=== PATIENT | male | born 1970 | race African-American/Black ===

== ENCOUNTER 2017-08-21 11:32 | Emergency (ER) | payer OTHER ==
[2017-08-21 11:37] VITALS: BMI 29.1
[2017-08-21] MEDS ORDERED: SODIUM CHLORIDE 1,000 ML IV STA (12:13)
--- NOTE | 2017-08-21 12:15 | PDOC ---
History of Present Illness - General Chief Complaint: Weakness Stated Complaint: WEAKNESS Time Seen by Provider: 08/21/17 11:43 History Source: Patient Exam Limitations: No Limitations Past History - Past Medical History Allergies/Adverse Reactions: Allergies Allergy/AdvReac Type Severity Reaction Status Date / Time omeprazole AdvReac Verified 08/21/17 11:37 Home Medications: Ambulatory Orders Ranitidine HCl [Zantac] 150 mg PO BID 08/21/17 Disorders: Yes (POOR KIDNEY FUNCTIONS) - Suicide/Smoking/Psychosocial Hx Smoking History: Never smoked Hx Alcohol Use: No Drug/Substance Use Hx: No *Physical Exam - Vital Signs Last Vital Signs Temp Pulse Resp BP Pulse Ox 98.4 F 79 20 122/77 100 08/21/17 11:34 08/21/17 11:34 08/21/17 11:34 08/21/17 11:34 08/21/17 12:02 ED Treatment Course - LABORATORY CBC & Chemistry Diagram: 08/21/17 12:35 08/21/17 12:35 *DC/Admit/Observation/Transfer Diagnosis at time of Disposition: Weakness Abdominal pain Qualifiers: Abdominal location: epigastric Qualified Code(s): R10.13 - Epigastric pain; R10.13 - Epigastric pain - Discharge Dispostion Disposition: HOME Condition at time of disposition: Improved Admit: No - Referrals Referrals: Vasile Atkinson MD [Primary Care Provider] - - Patient Instructions Printed Discharge Instructions: DI for Abdominal Pain-Adult Additional Instructions: You felt weak today and had abdominal pain. Your lab testing showed elevated creatinine. Follow up with your development mechanic, primary care doctor, and carrier operator. If you have the stomach pain you may take ibuprofen 400 mg 3 times a day if needed. He may also take Maalox and Zofran. Follow the dosing instructions on the bottle. Eat a bland diet for the next couple days. Avoid dairy, spicy foods, fatty foods. You may have bananas, applesauce, plain rice, toast. Avoid rigorous work outs for the next few days. Return to the emergency department if you have worsening pain, weakness, nausea , vomiting, or any changes in your symptoms. - Post Discharge Activity Forms/Work/School Notes: Back to Work
[2017-08-21 12:51] LABS: BASOPHIL 0.7 % (0-2.0); EOSINOPHIL 0.6 % (0-4.5); MCH 26.6 pg (25.7-33.7); MCHC 33.5 g/dl (32.0-35.9); MEAN CELL VOLUME 79.5 fl (80-96); MEAN PLT VOLUME 8.4 fl (7.5-11.1); NEUTROPHILS 58.7 % (42.8-82.8); PLATELET COUNT 193 K/MM3 (134-434); RDW 14.2 % (11.9-15.9); WHITE BLOOD COUNT 4.7 K/mm3 (4.0-10.0)
[2017-08-21 12:59] LABS: URINE APPEARANCE CLEAR; URINE BILIRUBIN NEGATIVE (NEGATIVE); URINE BLOOD NEGATIVE (NEGATIVE); URINE COLOR COLORLESS; URINE GLUCOSE (UA) NEGATIVE (NEGATIVE); URINE KETONE NEGATIVE (NEGATIVE); URINE LEUK ESTERASE NEGATIVE (NEGATIVE); URINE NITRITE NEGATIVE (NEGATIVE); URINE PROTEIN NEGATIVE (NEGATIVE); URINE UROBILINOGEN NEGATIVE mg/dL (0.2-1.0)
[2017-08-21 13:05] LABS: ALBUMIN 4.2 g/dl (3.4-5.0); ANION GAP 4 (8-16); CALCIUM 9.3 mg/dL (8.5-10.1); CO2 31 mmol/L (21-32); GLUCOSE,RANDOM 100 mg/dL (74-106)
[2017-08-21 13:10] LABS: ALK PHOS 64 U/L (45-117); BILIRUBIN,TOTAL 0.6 mg/dL (0.2-1.0); CREATININE 1.4 mg/dL (0.7-1.3); INR 1.1 (0.82-1.09); PROTHROMBIN TIME (PATIENT) 12.1 SEC (9.98-11.88); SGOT/AST 51 U/L (15-37); SGPT/ALT 55 U/L (12-78); TOT PROT 7.5 g/dl (6.4-8.2)
[2017-08-21 13:16] LABS: TROPONIN I < 0.02 ng/ml (0.00-0.05)
[2017-08-21 13:19] LABS: CPK 1845 IU/L (39-308)
[2017-08-21 15:18] VITALS: BP 144/91; PULSE 73; TEMP 98.5
[2017-08-21] MEDS ORDERED: ONDANSETRON 4 MG/2 ML VIAL IVPUSH ONE (16:11)
[2017-08-21] MEDS ORDERED: KETOROLAC TROMETHAMINE 15 MG/ML VIAL IVPUSH ONE (16:14)
[2017-08-21] MEDS ORDERED: MAG HYDROX/AL HYDROX/SIMETH 355 ML ORAL.SUSP PO ONE (16:15)
[2017-08-21] MEDS ORDERED: MAG HYDROX/AL HYDROX/SIMETH 30 ML UNIT-DOSE CUP ONE (16:18)
--- NOTE | 2017-08-21 17:13 | PDOC ---
*Physical Exam - Vital Signs Last Vital Signs Temp Pulse Resp BP Pulse Ox 98.5 F 73 17 144/91 100 08/21/17 15:18 08/21/17 15:18 08/21/17 15:18 08/21/17 15:18 08/21/17 15:18 ED Treatment Course - LABORATORY CBC & Chemistry Diagram: 08/21/17 12:35 08/21/17 12:35 - ADDITIONAL ORDERS Additional order review: Laboratory Results 08/21/17 08/21/17 08/21/17 12:35 12:35 12:35 PT with INR 12.10 H INR 1.10 Sodium 138 Potassium 4.1 Chloride 103 Carbon Dioxide 31 Anion Gap 4 L BUN 8 D Creatinine 1.4 H Creat Clearance w eGFR 54.56 Random Glucose 100 Calcium 9.3 Total Bilirubin 0.6 D AST 51 H D ALT 55 D Alkaline Phosphatase 64 Creatine Kinase Creatine Kinase Index CK-MB (CK-2) Troponin I B-Natriuretic Peptide 43.71 Total Protein 7.5 Albumin 4.2 Lipase Urine Color Colorless Urine Appearance Clear Urine pH 7.0 Ur Specific [place] <= 1.005 Urine Protein Negative Urine Glucose (UA) Negative Urine Ketones Negative Urine Blood Negative Urine Nitrite Negative Urine Bilirubin Negative Urine Urobilinogen Negative 08/21/17 12:14 PT with INR INR Sodium Potassium Chloride Carbon Dioxide Anion Gap BUN Creatinine Creat Clearance w eGFR Random Glucose Calcium Total Bilirubin AST ALT Alkaline Phosphatase Creatine Kinase 1845 H Creatine Kinase Index 0.5 CK-MB (CK-2) 10.193 H Troponin I < 0.02 B-Natriuretic Peptide Total Protein Albumin Lipase 291 Urine Color Urine Appearance Urine pH Ur Specific [place] Urine Protein Urine Glucose (UA) Urine Ketones Urine Blood Urine Nitrite Urine Bilirubin Urine Urobilinogen 08/21/17 12:35 RBC 5.06 MCV 79.5 L MCHC 33.5 RDW 14.2 MPV 8.4 Neutrophils % 58.7 Lymphocytes % 30.4 Monocytes % 9.6 Eosinophils % 0.6 Basophils % 0.7 - Medications Given in the ED: ED Medications Discontinued Medications Generic Name Dose Route Start Last Admin Trade Name Freq PRN Reason Stop Dose Admin Al Hydroxide/Mg Hydroxide 30 ml 08/21/17 16:15 08/21/17 16:28 Mylanta Suspension - PO 08/21/17 16:16 30 ml ONCE ONE Administration Sodium Chloride 1,000 mls @ 1,000 mls/hr 08/21/17 12:13 08/21/17 13:30 Normal Saline - IV 08/21/17 13:12 1,000 mls/hr ASDIR STA Administration Ketorolac Tromethamine 15 mg 08/21/17 16:14 08/21/17 16:28 Toradol Injection - IVPUSH 08/21/17 16:15 15 mg ONCE ONE Administration Ondansetron HCl 4 mg 08/21/17 16:11 08/21/17 16:28 Zofran Injection IVPUSH 08/21/17 16:12 4 mg ONCE ONE Administration Medical Decision Making - Medical Decision Making 08/21/17 17:12 Pt seen by the Advanced Practice Provider under my direct supervision Ancillary studies reviewed I agree with plan as outlined by the Advanced Practice Provider *DC/Admit/Observation/Transfer Diagnosis at time of Disposition: Weakness generalized Abdominal pain Qualifiers: Abdominal location: epigastric Qualified Code(s): R10.13 - Epigastric pain - Discharge Dispostion Disposition: HOME Condition at time of disposition: Improved - Prescriptions Prescriptions: Mag Hydrox/Al Hydrox/Simeth [Mylanta Suspension -] 30 ml PO BID #1 bottle Ondansetron [Zofran *Odt*] 8 mg SL TID PRN #10 od.tablet PRN Reason: Nausea - Referrals Referrals: Vasile Atkinson MD [Primary Care Provider] - - Patient Instructions Printed Discharge Instructions: DI for Abdominal Pain-Adult Additional Instructions: You felt weak today and had abdominal pain. Your lab testing showed elevated creatinine. Follow up with your speech language pathology assistant, primary care doctor, and cytology laboratory manager. If you have the stomach pain you may take ibuprofen 400 mg 3 times a day if needed. He may also take Maalox and Zofran. Follow the dosing instructions on the bottle. Eat a bland diet for the next couple days. Avoid dairy, spicy foods, fatty foods. You may have bananas, applesauce, plain rice, toast. Avoid rigorous work outs for the next few days. Return to the emergency department if you have worsening pain, weakness, nausea , vomiting, or any changes in your symptoms. - Post Discharge Activity Forms/Work/School Notes: Back to Work
--- NOTE | 2017-08-22 14:17 | EKG ---
Test Reason : Blood Pressure : / mmHG Vent. Rate : 073 BPM Atrial Rate : 073 BPM P-R Int : 172 ms QRS Dur : 100 ms QT Int : 384 ms P-R-T Axes : 062 050 036 degrees QTc Int : 423 ms NORMAL SINUS RHYTHM NORMAL ECG NO PREVIOUS ECGS AVAILABLE Confirmed by INES TEJEDA MD ([id number]) on 08/22/2017 2:16:54 PM Referred By: Confirmed By:INES TEJEDA MD
== END 2017-08-21 17:32 | disposition home or self-care (01) ==
LOC: JER 11:32
PROC: 3E033TZ Introduction of Destructive Agent into Peripheral Vein, Percutaneous Approach (ICD-10-PCS; principal; 2017-08-21)
PROC: 3E0333Z Introduction of Anti-inflammatory into Peripheral Vein, Percutaneous Approach (ICD-10-PCS; 2017-08-21)
PROC: 3E033GC Introduction of Other Therapeutic Substance into Peripheral Vein, Percutaneous Approach (ICD-10-PCS; 2017-08-21)
DX: R53.1 Weakness (principal); R10.13 Epigastric pain
CPT/HCPCS: 36415; 71010-TC; 80053; 81003; 82553; 83690; 83880; 84484; 85025; 85610; 87086; 93005; 93010; 99284-25